=== PATIENT | female | born 1995 | race Caucasian/White ===

== ENCOUNTER 2018-09-16 18:21 | Outpatient (CLI) | payer OTHER | END 2018-09-17 17:11 | disposition home or self-care (01) | LOC: OBS/DEL 18:21 | DX: O26.893 Other specified pregnancy related conditions, third trimester (principal); Z34.03 Encounter for supervision of normal first pregnancy, third trimester; M54.5 Low back pain; M79.662 Pain in left lower leg; M79.661 Pain in right lower leg ==

== ENCOUNTER 2018-11-10 06:45 | Inpatient (IN) | payer OTHER ==
[~2018-11-10] VITALS: Ht 167.6 cm; Wt 75.3 kg
[2018-11-10] MEDS ORDERED: PRENATAL TABLE1 EAC2 PO (08:48)
== END 2018-11-12 13:46 | disposition home or self-care (01) | DRG 807 ==
LOC: OB/GYN 06:45 → LDR 06:45 → OB/GYN 11-11 00:07
PROVIDERS: ADMIT Obstetrics & Gynecology
PROC: 10E0XZZ Delivery of Products of Conception, External Approach (ICD-10-PCS; principal; 2018-11-10)
PROC: 0KQM0ZZ Repair Perineum Muscle, Open Approach (ICD-10-PCS; 2018-11-10)
PROC: 3E0P7VZ Introduction of Hormone into Female Reproductive, Via Natural or Artificial Opening (ICD-10-PCS; 2018-11-10)
PROC: 3E033VJ Introduction of Other Hormone into Peripheral Vein, Percutaneous Approach (ICD-10-PCS; 2018-11-10)
PROC: 4A1HXCZ Monitoring of Products of Conception, Cardiac Rate, External Approach (ICD-10-PCS; 2018-11-10)
DX: O70.1 Second degree perineal laceration during delivery (principal); Z37.0 Single live birth; Z3A.39 39 weeks gestation of pregnancy